=== PATIENT | male | born 1990 | race Caucasian/White ===

== ENCOUNTER 2018-08-12 17:31 | Emergency (ER) | payer OTHER, SELFPAY ==
[2018-08-12] MEDS ORDERED: Sodium Chloride 0.9% 2,000 ML ONE (18:15)
[2018-08-12 18:32] LABS: #Basophils 0.1 thou/uL (0.0-0.2); #Lymphocytes 1.4 thou/uL (1.20-3.40); #Monocytes 0.3 thou/uL (0.11-0.59); #Neutrophils 4.4 thou/uL (1.40-6.50); %Basophils 1.4 % (0.0-1.0); %Eosinophils 0.5 % (0.0-10.0); %Lymphocytes 22.8 % (21.0-51.0); %Monocytes 4.6 % (0.0-10.0); %Neutrophils 70.7 % (42.0-75.0); Hemoglobin 16.6 g/dL (14.0-18.0); Mean Corpuscular HGB CONC 33.6 g/dL (32.0-36.0); Mean Corpuscular Hemoglobin 31.1 pg (27.0-31.0); Mean Corpuscular Volume 92.5 fL (78.0-98.0); Mean Platelet Volume 6.5 fL (7.4-10.4); Platelet Count 298 thou/uL (130-400); RBC Distribution Width 11.3 % (11.5-14.5); Red Blood Cell (RBC) Count 5.35 mill/uL (4.70-6.10); White Blood Cell (WBC) Count 6.2 thou/uL (4.8-10.8)
[2018-08-12 18:39] LABS: ALT (SGPT) 28 U/L (8-55); AST (SGOT) 17 U/L (5-34); Albumin 4.8 g/dL (3.5-5.0); Alkaline Phosphatase 192 U/L (40-150); Anion Gap 25 mmol/L (10-20); BUN (Urea Nitrogen) 30 mg/dL (8.9-20.6); Bilirubin, Total 1.2 mg/dL (0.2-1.2); Calc. Creatinine Clearance 0 mL/min (70-130); Calcium 10.8 mg/dL (7.8-10.44); Carbon Dioxide 23 mmol/L (22-29); Chloride 88 mmol/L (98-107); Estimated GFR-MDRD 54; Globulin 3.3 g/dL (2.4-3.5); Magnesium 2.3 mg/dL (1.6-2.6); Potassium 3.5 mmol/L (3.5-5.1); Protein, Total 8.1 g/dL (6.0-8.3); Sodium 132 mmol/L (136-145)
[2018-08-12] MEDS ORDERED: Insulin Regular 300 UNITS/3 ML VIAL ONE (18:48)
[2018-08-12 18:51] LABS: Glucose 598 mg/dL (70-105)
[2018-08-12 19:08] LABS: Bilirubin Negative (Negative); Blood, Urine Negative (Negative); Clarity Clear (Clear); Glucose, Urine (Dipstick) >=1000 mg/dL (Negative); Leukocyte Negative (Negative); Nitrite Negative (Negative); Protein, Urine (Dipstick) Negative (Neg-Trace); Urobilinogen 0.2 mg/dL (0.2-1.0); pH, Urine 5.5 (5.0-9.0)
[2018-08-12 19:10] LABS: Specific Gravity, Urine 1.031 (1.002-1.036)
[2018-08-12] MEDS ORDERED: Sodium Chloride 0.9% 1,000 ML ONE (19:30)
[2018-08-12 20:27] LABS: Base Excess-Venous 0.8 mmol/L (0 (+/- 2.5)); Bicarbonate (HCO3v) 23.8 mmol/L (1.0-85.0); CO2 Tension (PvCO2) 32.9 mmHg (41.0-51.0); O2 Tension (PvO2) 128.9 mmHg (35.0-45.0); Potassium 3.3 mmol/L (3.4-4.7); T. Carbon Dioxide 24.8 mmol/L (1.0-85.0); pH (Venous) 7.467 (7.35-7.45); vO2 Saturation-calc 99.1 % (94-98)
[2018-08-12 20:28] LABS: Calcium, Ionized 1.01 mmol/L (1.12-1.32)
[2018-08-12 20:32] LABS: Anion Gap 19 mmol/L (10-20); BUN (Urea Nitrogen) 24 mg/dL (8.9-20.6); Calc. Creatinine Clearance 0 mL/min (70-130); Calcium 9.8 mg/dL (7.8-10.44); Carbon Dioxide 24 mmol/L (22-29); Chloride 99 mmol/L (98-107); Estimated GFR-MDRD Greater than 90; Glucose 246 mg/dL (70-105); Potassium 3.5 mmol/L (3.5-5.1); Sodium 138 mmol/L (136-145)
== END 2018-08-12 21:31 | disposition home or self-care (01) ==
LOC: NAV ERS 17:31
DX: E10.10 Type 1 diabetes mellitus with ketoacidosis without coma (principal); Z76.0 Encounter for issue of repeat prescription; F32.9 Major depressive disorder, single episode, unspecified; F17.210 Nicotine dependence, cigarettes, uncomplicated; Z79.899 Other long term (current) drug therapy
CPT/HCPCS: 36416; 80053; 81003; 82010; 82330; 82803; 82947; 83605; 83735; 85025; 96361; 96374; J1815; J7050

== ENCOUNTER 2019-10-09 10:45 | Emergency (ER) | payer OTHER ==
[2019-10-09 11:10] LABS: #Eosinphils 0.1 thou/uL (0.0-0.7); #Lymphocytes 1.8 thou/uL (1.20-3.40); #Monocytes 0.4 thou/uL (0.11-0.59); %Basophils 0.9 % (0.0-1.0); %Eosinophils 2.3 % (0.0-10.0); %Lymphocytes 33.4 % (21.0-51.0); %Monocytes 7.7 % (0.0-10.0); %Neutrophils 55.8 % (42.0-75.0); Hemoglobin 15.1 g/dL (14.0-18.0); Mean Corpuscular HGB CONC 34.6 g/dL (32.0-36.0); Mean Corpuscular Hemoglobin 31.1 pg (27.0-31.0); Mean Corpuscular Volume 90.1 fL (78.0-98.0); Mean Platelet Volume 6.8 fL (7.4-10.4); Platelet Count 260 thou/uL (130-400); RBC Distribution Width 11.6 % (11.5-14.5); Red Blood Cell (RBC) Count 4.84 mill/uL (4.70-6.10); White Blood Cell (WBC) Count 5.3 thou/uL (4.8-10.8)
[2019-10-09 11:21] LABS: PTT 28.8 SEC (22.9-36.1); Prothrombin Time 12.9 SEC (12.0-14.7)
[2019-10-09 11:32] LABS: ALT (SGPT) 16 U/L (8-55); AST (SGOT) 15 U/L (5-34); Albumin 4.5 g/dL (3.5-5.0); Alcohol Less than 10 mg/dL (Less than 10); Alkaline Phosphatase 58 U/L (40-110); Anion Gap 13 mmol/L (10-20); BUN (Urea Nitrogen) 10 mg/dL (8.9-20.6); Bilirubin, Total 0.5 mg/dL (0.2-1.2); Calc. Creatinine Clearance 0 mL/min (70-130); Calcium 9.6 mg/dL (7.8-10.44); Carbon Dioxide 30 mmol/L (22-29); Chloride 98 mmol/L (98-107); Estimated GFR-MDRD 79; Globulin 2.4 g/dL (2.4-3.5); Glucose 269 mg/dL (70-105); Lipase 30 U/L (8-78); Potassium 3.8 mmol/L (3.5-5.1); Protein, Total 6.9 g/dL (6.0-8.3); Sodium 137 mmol/L (136-145)
[2019-10-09] MEDS ORDERED: Adacel (T-DAP) 0.5 ML SYRINGE ONE ×2 (11:36→11:54)
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
[2019-10-09] MEDS ORDERED: Lidocaine 1% (PF) 30 ML VIAL ONE (12:19)
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
[2019-10-09] MEDS ORDERED: Amoxicillin/Potassium Clav 875 MG TAB ONE (13:06)
[2019-10-09] MEDS ORDERED: Bacitracin 1 PK ONE (13:07)
== END 2019-10-09 13:33 | disposition home or self-care (01) ==
LOC: NAV ERS 10:45
DX: S02.2XXA Fracture of nasal bones, initial encounter for closed fracture (principal); S01.511A Laceration without foreign body of lip, initial encounter; S01.21XA Laceration without foreign body of nose, initial encounter; E10.9 Type 1 diabetes mellitus without complications; F32.9 Major depressive disorder, single episode, unspecified; F41.9 Anxiety disorder, unspecified; F17.290 Nicotine dependence, other tobacco product, uncomplicated; Z79.899 Other long term (current) drug therapy; Z23 Encounter for immunization; V47.5XXA Car driver injured in collision with fixed or stationary object in traffic accident, initial encounter
CPT/HCPCS: 12013; 36416; 70450; 70486; 71260; 74177; 80053; 80307; 82150; 83690; 85025; 85610; 85730; 90471; 90715; 93005; 94760; 36415-59; J2001

== ENCOUNTER 2020-02-11 09:37 | Emergency (ER) | payer OTHER, SELFPAY ==
[~2020-02-11 09:37] MED LIST: Calcium Chloride 1 GM/10 ML Abboject SYRINGE ONE; EPINEPHrine 1 MG/ML AMP ONE
[2020-02-11 09:57] LABS: INR-International Normal Ratio 2.1; Prothrombin Time 23.6 SEC (12.0-14.7)
[2020-02-11 09:58] LABS: PTT 67.4 SEC (22.9-36.1)
[2020-02-11 10:04] LABS: Hemoglobin 14.5 g/dL (14.0-18.0); Mean Corpuscular Hemoglobin 32.9 pg (27.0-31.0); Red Blood Cell (RBC) Count 4.42 mill/uL (4.70-6.10); White Blood Cell (WBC) Count 48.6 thou/uL (4.8-10.8)
[2020-02-11 10:05] LABS: Band 20 % (5-11); Lymphocytes 22 % (21-51); Manual Diff?? YES; Mean Corpuscular HGB CONC 27.7 g/dL (32.0-36.0); Mean Platelet Volume 6.1 fL (7.4-10.4); Neutrophil 52 % (42-75); Platelet Count 413 thou/uL (130-400); RBC Distribution Width 13.6 % (11.5-14.5)
[2020-02-11 10:06] LABS: Macrocytosis MODERATE=16-30 cells (100X) (0-5/hpf); Monocytes 3 % (0-10)
[2020-02-11 10:07] LABS: %Eosinophils 0.5 % (0.0-10.0); %Lymphocytes 21.6 % (21.0-51.0); %Monocytes 9.4 % (0.0-10.0); %Neutrophils 67.7 % (42.0-75.0)
[2020-02-11 10:08] LABS: #Basophils 0.4 thou/uL (0.0-0.2); #Eosinphils 0.2 thou/uL (0.0-0.7); #Monocytes 4.6 thou/uL (0.11-0.59); #Neutrophils 32.9 thou/uL (1.40-6.50); %Basophils 0.8 % (0.0-1.0); ALT (SGPT) 65 U/L (8-55); AST (SGOT) 124 U/L (5-34); Albumin 3.9 g/dL (3.5-5.0); Alkaline Phosphatase 151 U/L (40-110); BUN (Urea Nitrogen) 43 mg/dL (8.9-20.6); Bilirubin, Total 0.2 mg/dL (0.2-1.2); Calc. Creatinine Clearance 0 mL/min (70-130); Calcium 9.4 mg/dL (7.8-10.44); Chloride 83 mmol/L (98-107); Estimated GFR-MDRD 18; Globulin 2.5 g/dL (2.4-3.5); MDiff Complete? YES; Protein, Total 6.4 g/dL (6.0-8.3); Sodium 133 mmol/L (136-145)
[2020-02-11 10:16] LABS: Troponin I 0.027 ng/mL (< 0.028)
[2020-02-11 10:37] LABS: Glucose 1704 mg/dL (70-105); Potassium 6.7 mmol/L (3.5-5.1)
[2020-02-11 10:56] LABS: Carbon Dioxide Less than 8 mmol/L (22-29)
== END 2020-02-11 13:00 | disposition expired ==
LOC: NAV ERS 09:37
DX: I46.9 Cardiac arrest, cause unspecified (principal); E10.65 Type 1 diabetes mellitus with hyperglycemia; F32.9 Major depressive disorder, single episode, unspecified; F41.9 Anxiety disorder, unspecified; F17.290 Nicotine dependence, other tobacco product, uncomplicated; Z79.899 Other long term (current) drug therapy
CPT/HCPCS: 36415; 36416; 80053; 82553; 84484; 85025; 85610; 85730; 92950; 96374; 96375; 96376; J0171